=== PATIENT | male | born 1955 | race Caucasian/White ===

== ENCOUNTER 2020-04-27 07:32 | Outpatient (CLI) | payer MEDICARE, BC ==
--- NOTE | 2020-04-27 11:19 | MRI ---
MRI LUMBAR SPINE: DATE: 04/27/2020. PROVIDED CLINICAL HISTORY: Back pain and right hip pain. COMPARISON: 10/06/2016. FINDINGS: Five lumbar vertebral bodies are assumed. There is slight retrolisthesis of L2 on L3 and L3 on L5. Vertebral body heights appear preserved. No focal concerning regional marrow signal abnormality is e vident. The conus medullaris is normal in signal and terminates at an appropriate level. At T11-12, there is a right central disk protrusion without significant canal or foraminal narrowing apparent. At L1-2, there is a right central disk protrusion with mild effacement of a right ventrolateral subar achnoid space. There is no significant central canal or foraminal narrowing. At L2-3, there is disk desiccation and loss of disk space height with a broad-based disk bulge and bi lateral facet arthritis. There is mild central canal stenosis and moderate bilateral subarticular na rrowing. There is no significant foraminal stenosis apparent. At L3-4, there is disk space height loss and disk desiccation. There is a right foraminal asymmetric bulge with accompanying osteophyte producing displacement of the exiting right L3 nerve root. There is bilateral facet arthritis and broad disk bulge producing moderate-severe central canal stenosis. There is no significant left foraminal narrowing apparent. At L4-5, there is a broad-based disk bulge and accompanying osteophyte with bilateral facet arthritis . There is moderate central stenosis and severe bilateral subarticular narrowing, left greater than right. There is moderate right and severe left foraminal narrowing. At L5-S1, there is bilateral facet arthrosis without significant central canal or foraminal narrowing apparent. IMPRESSION: Lumbar disk and facet degenerative changes producing canal and foraminal narrowing as described above , appearing similar to the 2017 study. POS: [facility]
== END 2020-04-27 07:33 | disposition home or self-care (01) ==
LOC: TBSIIMAG 07:32
PROVIDERS: ATTEND Neurological Surgery
DX: M47.26 Other spondylosis with radiculopathy, lumbar region (principal); M48.062 Spinal stenosis, lumbar region with neurogenic claudication; M51.16 Intervertebral disc disorders with radiculopathy, lumbar region
CPT/HCPCS: 72148